=== PATIENT | male | born 1990 | race Caucasian/White ===

== ENCOUNTER 2016-11-26 04:50 | Emergency (ER) | payer OTHER | END 2016-11-26 05:45 | disposition home or self-care (01) | LOC: FER 04:50 | DX: S86.911A Strain of unspecified muscle(s) and tendon(s) at lower leg level, right leg, initial encounter (principal); F17.200 Nicotine dependence, unspecified, uncomplicated; Z88.0 Allergy status to penicillin; Z88.1 Allergy status to other antibiotic agents; X50.1XXA Overexertion from prolonged static or awkward postures, initial encounter; Y93.67 Activity, basketball; Y92.830 Public park as the place of occurrence of the external cause; Y99.8 Other external cause status | CPT/HCPCS: 73564; J1885 ==